=== PATIENT | male | born 1980 | race Caucasian/White ===

== ENCOUNTER → 2020-03-18 10:30 | Outpatient (CLI) | payer BC, SELFPAY ==
--- NOTE | 2020-03-18 10:39 | DI.CT.S_ITS ---
PROCEDURE: CT ABDOMEN PELVIS WO CON INDICATIONS: right lower quad pain TECHNIQUE: After the administration of oral contrast, 5 mm thick sections acquired from the diaphragms to the symphysis. 5 mm coronal and sagittal reformats were performed. For radiation dose reduction, the following was used: automated exposure control, adjustment of mA and/or kV according to patient size. COMPARISON: None. FINDINGS: Image quality: Excellent. ABDOMEN: Lung bases: Lung bases are clear. Heart size is normal. Solid organs: Liver is normal in size. Gallbladder is normal. Pancreas is normal in size. Spleen is normal in size. No adrenal nodules. Both kidneys are normal in size, without hydronephrosis or nephrolithiasis. Peritoneum and bowel: Appendix is not visualized. There is no secondary findings to suggest acute appendicitis. The terminal ileum may be mildly thickened. There is no inflammatory stranding. Bowel loops demonstrate normal wall thickness and caliber. No free fluid or air. Nodes and vessels: No retroperitoneal or mesenteric adenopathy by size criteria. Aorta and inferior vena cava are normal in size. Miscellaneous: No ventral hernias. PELVIS: Genitourinary: Bladder wall is moderately thickened. Miscellaneous: No inguinal hernias or adenopathy. Bones: No suspicious bony lesions. No vertebral body compression fractures. IMPRESSION: 1. No urinary stones or hydronephrosis. 2. Mild thickening of the terminal ileum. Differential diagnosis includes artifact, inflammatory bowel disease and infectious etiology. Recommend clinical correlation. 3. Mild concentric thickening of the urinary bladder, suggesting cystitis. Dictated by: Elijah Lai M.D. on 03/18/2020 at 16:15 Approved by: Elijah Lai M.D. on 03/18/2020 at 17:57
== END ==
PROVIDERS: PCP Internal Medicine Gastroenterology; Referring Provider Urology; Visit Provider Urology
DX: R31.9 Hematuria, unspecified (principal); R10.31 Right lower quadrant pain
CPT/HCPCS: 74176

== ENCOUNTER → 2022-01-19 09:51 | Outpatient (CLI) | payer BC, SELFPAY ==
[2022-01-19 18:57] LABS: Add Manual Diff / Slide Review NO; Alanine Aminotransferase 28 IU/L (<50); Albumin 4.8 g/dL (3.5-5.0); Albumin Globulin Ratio 1.5 (1.0-2.8); Alkaline Phosphatase 50 U/L (38-126); Aspartate Aminotransferase 31 IU/L (17-59); BUN Creatinine Ratio 15.6 (6-22); Basophils Absolute Auto 0 /uL (0-100); Bilirubin Total 0.6 mg/dL (0.2-1.3); Blood Urea Nitrogen 14 mg/dL (9-20); Calcium 9.6 mg/dL (8.4-10.2); Carbon Dioxide 28 mmol/L (22-32); Chloride 100 mmol/L (98-107); Cholesterol 221 mg/dL (140-199); Eosinophils Absolute Auto 100 /uL (0-450); Eosinophils Percent Auto 1.4 % (2-4); Estimated Glomerular Filt Rate > 60.0 mL/min (>60); Globulin 3.2 g/dL (1.7-4.1); Glucose 101 mg/dL (70-100); HDL Cholesterol 72 mg/dL (40-60); HEMOLYSIS < 15 (0-50); Hematocrit 43.7 % (41-53); Hemoglobin 14.8 g/dL (13.5-17.5); LDL Cholesterol Calculated 136 mg/dL (<100); Lymphocytes Absolute Auto 1300 /uL (1100-4500); Lymphocytes Percent Auto 28.9 % (25-40); Mean Corpuscular HGB Conc 33.8 % (30-36); Mean Corpuscular Hemoglobin 31.9 PG (26-34); Mean Corpuscular Volume 94.3 fL (80-100); Monocytes Absolute Auto 500 /uL (0-900); Monocytes Percent Auto 10.1 % (3-14); Neutrophils Absolute Auto 2600 /uL (1500-7000); Neutrophils Percent Auto 58.6 % (50-75); Platelet Count 211 X10^3/uL (150-400); Potassium 4.2 mmol/L (3.4-5.1); Red Blood Cell Count 4.64 X10^6/uL (4.5-5.9); Red Cell Distribution Width 12.6 % (11.6-14.8); Sodium 139 mmol/L (137-145); Triglycerides 66 mg/dL (35-150); White Blood Cell Count 4.5 X10^3/uL (4.5-11.0)
[2022-01-19 21:08] LABS: Urine N gonorrhoeae NOT DETECTED
[2022-01-19 21:11] LABS: Urine Chlamydia NOT DETECTED
[2022-01-21 12:11] LABS: RPR Screen Non Reactive (Non Reactive)
[2022-01-22 17:28] LABS: HIV 1 & 2 Ab/Ag 4th Gen Combo NEGATIVE (NEGATIVE)
== END ==
PROVIDERS: PCP Internal Medicine Gastroenterology; Visit Provider Physician Assistant
DX: R03.0 Elevated blood-pressure reading, without diagnosis of hypertension (principal); Z11.3 Encounter for screening for infections with a predominantly sexual mode of transmission
CPT/HCPCS: 80053; 80061; 85025; 86592; 87389; 87491; 87591

== ENCOUNTER → 2023-05-14 12:05 | Outpatient (CLI) | payer SELFPAY ==
[2023-05-14 20:26] LABS: Appearance Urine UA CLEAR; Bilirubin Urine UA NEGATIVE (NEGATIVE); Color Urine UA YELLOW; Glucose Urine UA NEGATIVE (Negative); Ketones Urine UA NEGATIVE (NEGATIVE); Leukocyte Esterase Urine UA NEGATIVE (NEGATIVE); Nitrite Urine UA NEGATIVE (Negative); Occult Blood Urine UA TRACE-INTACT (Negative); Protein Urine UA NEGATIVE (Negative); Urobilinogen Urine UA 0.2 E.U./dL (0.2); pH Urine UA 7.5 (4.5-8.0)
[2023-05-14 20:43] LABS: Bacteria Urine None Seen; Culture Indicated Urine Cult Not Indicated; RBC Urine 0-1/HPF (0-5/HPF); Squamous Epithelial Cell Urine 0-1 /HPF (0-5/HPF); WBC Urine None Seen (0-5/HPF)
== END ==
PROVIDERS: PCP Physician Assistant; Visit Provider Physician Assistant
DX: I10 Essential (primary) hypertension (principal); R31.9 Hematuria, unspecified
CPT/HCPCS: 81001